=== PATIENT | female | born 1955 | race Two or more races ===

== ENCOUNTER 2020-08-05 21:10 | Inpatient (IN) | payer MEDICAID, OTHER ==
[~2020-08-05] VITALS: Ht 172.7 cm; Wt 67.7 kg
[2020-08-05] MEDS ORDERED: MORPHINE SULFATE 4 MG/ML SYR/VIAL ONE (21:26)
[2020-08-05] MEDS ORDERED: ONDANSETRON HCL 4 MG/2 ML VIAL ONE (21:26)
[2020-08-06 00:04] LABS: Basophils # (auto) 0 10 ^3/uL (0-0.2); Basophils % (auto) 0.6 % (0.0-2.0); Eosinophils # (auto) 0 10 ^3/uL (0-0.8); Eosinophils % (auto) 0.3 % (0.0-7.0); Hematocrit 38.8 % (36.0-46.0); Lymphocytes # (auto) 1.3 10 ^3/uL (0.4-5.4); Lymphocytes % (auto) 15.9 % (10.0-50.0); Mean Corpuscular Hemoglobin 30.1 pg (28.0-32.0); Mean Corpuscular Hgb Conc. 33.5 g/dL (32.0-36.0); Mean Corpuscular Volume 89.8 fL (80.0-100.0); Monocytes # (auto) 0.5 10 ^3/uL (0-1.3); Monocytes % (auto) 5.6 % (0.0-12.0); Neutrophils # (auto) 6.5 10 ^3/uL (1.6-8.6); Neutrophils % (auto) 77.6 % (37.0-80.0); Platelet Count (auto) 241 10^3/uL (140-450); Red Blood Cells 4.32 10^6/uL (4.0-5.20); Red Cell Distribution Width 12.8 % (11.8-14.3); White Blood Cell 8.4 10^3/uL (4.4-10.8)
[2020-08-06 00:19] LABS: INR 1.03 (0.9-1.15); Partial Thromboplastin Time 26.9 sec (23.0-31.2)
[2020-08-06 00:21] LABS: Albumin 3.3 g/dL (3.4-5.0); Calcium 8.3 mg/dL (8.5-10.1)
[2020-08-06 00:23] LABS: BUN/Creatinine Ratio 25.8
[2020-08-06 00:29] LABS: Bilirubin, Total 0.7 mg/dL (0.2-1.0); Total Protein 6.7 g/dL (6.4-8.2)
[2020-08-06] MEDS ORDERED: HEPARIN DRIP/D5W 100UNITS/ML 250 ML IV SCH ×2 (01:30→18:00)
[2020-08-06] MEDS ORDERED: HEPARIN SODIUM (PORCINE) 5000 UNITS/ML 1ML VIAL IV ONE (01:30)
[2020-08-06] MEDS ORDERED: ATORVASTATIN 20 MG TAB PO ONE (01:30)
[2020-08-06] MEDS ORDERED: METOPROLOL TARTRATE 25 MG TAB PO ONE (01:30)
[2020-08-06] MEDS ORDERED: SODIUM CHLORIDE 0.9% 1,000 ML IV ONE (01:45)
[2020-08-06] MEDS ORDERED: MORPHINE SULFATE 4 MG/ML SYR/VIAL IV ONE (02:45)
[2020-08-06] MEDS ORDERED: ONDANSETRON HCL 4 MG/2 ML VIAL IV ONE (02:45)
[2020-08-06 05:00] VITALS: BP 121/69
[2020-08-06 05:20] VITALS: BP 121/66
[2020-08-06] MEDS ORDERED: ATOR20TA50 PO (05:20)
[2020-08-06] MEDS ORDERED: LISI40TA11 PO (05:20)
[2020-08-06] MEDS ORDERED: INSU1INJ21 SC (05:20)
[2020-08-06] MEDS ORDERED: ASPI-543 PO (05:20)
[2020-08-06] MEDS ORDERED: INSU1INJ19 SC (05:21)
[2020-08-06] MEDS ORDERED: PNEUMOCOCCAL VACC POLYS 25 MCG/0.5 ML VIAL IM ONE (05:30)
[2020-08-06] MEDS: METOPROLOL TARTRATE 25 MG TAB PO SCH ×2 (08:59→21:41)
[2020-08-06 09:00] VITALS: BP 108/63
[2020-08-06] MEDS: MORPHINE SULF INJ 2 MG/ML SYRINGE 1ML IV PRN (09:00)
[2020-08-06 09:04] LABS: INR 1.04 (0.9-1.15); Partial Thromboplastin Time 51.5 sec (23.0-31.2)
[2020-08-06] MEDS ORDERED: ATORVASTATIN 20 MG TAB PO SCH (10:00)
[2020-08-06 13:00] VITALS: BP 118/67
[2020-08-06] MEDS ORDERED: fentaNYL CITRATE 100 MCG/2 ML VL ONE (13:45)
[2020-08-06] MEDS ORDERED: HEPARIN SODIUM (PORCINE) 5000 UNITS/ML 1ML VIAL ONE (13:45)
[2020-08-06] MEDS ORDERED: VERAPAMIL 2.5MG/ML INJ 2ML VIAL IV ONE (13:45)
[2020-08-06] MEDS ORDERED: ANGIOMAX 250 MG VIAL IV ONE (13:45)
[2020-08-06] MEDS ORDERED: IODIXANOL 320MG/ML 100ML BTL IV ONE (13:46)
[2020-08-06] MEDS ORDERED: SODIUM CHL 0.9% 0 ML ONE (13:46)
[2020-08-06] MEDS ORDERED: MIDAZOLAM HCL 1MG/1ML-2 ML VIAL ONE (13:46)
[2020-08-06] MEDS ORDERED: LIDOCAINE 2%HCL (LOCAL ANESTH.) INJ 20ML MDV ONE (13:46)
[2020-08-06] MEDS ORDERED: OPTISON 3ml Vial for INJ IV ONE (14:57)
[2020-08-06 15:33] LABS: INR 1.1 (0.9-1.15); Partial Thromboplastin Time 68.9 sec (23.0-31.2)
[2020-08-06 16:20] VITALS: BP 110/65
[2020-08-06 22:00] VITALS: BP 124/62
[2020-08-07] VITALS (16 sets, daily range): BP systolic 137–178; BP diastolic 78–106
[2020-08-07 00:57] LABS: INR 1.03 (0.9-1.15); Partial Thromboplastin Time 42.4 sec (23.0-31.2)
[2020-08-07] MEDS: NITROGLYCERIN 0.4 MG SL TAB SL PRN ×4 (03:25→14:13)
[2020-08-07] MEDS: MORPHINE SULF INJ 2 MG/ML SYRINGE 1ML IV PRN ×2 (03:25→10:24)
[2020-08-07] MEDS ORDERED: ANGIOMAX 250 MG VIAL IV ONE (04:13)
[2020-08-07] MEDS ORDERED: MIDAZOLAM HCL 1MG/1ML-2 ML VIAL ONE (04:13)
[2020-08-07] MEDS ORDERED: SODIUM CHL 0.9% 50 ML ONE (04:13)
[2020-08-07] MEDS ORDERED: fentaNYL CITRATE 100 MCG/2 ML VL ONE (04:13)
[2020-08-07] MEDS ORDERED: LIDOCAINE 2%HCL (LOCAL ANESTH.) INJ 20ML MDV ONE (04:22)
[2020-08-07] MEDS ORDERED: IODIXANOL 320MG/ML 100ML BTL IV ONE ×2 (04:22→04:50)
[2020-08-07] MEDS ORDERED: SODIUM CHLORIDE 0.9% 2,200 ML IV ONE (04:30)
[2020-08-07] MEDS ORDERED: SODIUM CHLORIDE 0.9% 1,000 ML IV ONE (04:30)
[2020-08-07] MEDS ORDERED: diphenhdrAMINE HCL 50 MG/1 ML VL ONE (04:39)
[2020-08-07] MEDS ORDERED: FAMOTIDINE (10MG/ML) 2ML VL IV ONE (04:39)
[2020-08-07] MEDS ORDERED: methylPREDNISolone SOD SUCC 125 MG/2 ML VL ONE (04:39)
[2020-08-07] MEDS ORDERED: TICAGRELOR 90 MG TAB ONE (05:03)
[2020-08-07] MEDS ORDERED: ASPirin 325 MG TAB ONE (05:03)
[2020-08-07 07:42] LABS: Basophils # (auto) 0.1 10 ^3/uL (0-0.2); Basophils % (auto) 0.9 % (0.0-2.0); Eosinophils # (auto) 0 10 ^3/uL (0-0.8); Eosinophils % (auto) 0.3 % (0.0-7.0); Hematocrit 41.5 % (36.0-46.0); Lymphocytes # (auto) 1.3 10 ^3/uL (0.4-5.4); Lymphocytes % (auto) 18.5 % (10.0-50.0); Mean Corpuscular Hemoglobin 29.9 pg (28.0-32.0); Mean Corpuscular Hgb Conc. 33.7 g/dL (32.0-36.0); Mean Corpuscular Volume 88.8 fL (80.0-100.0); Monocytes # (auto) 0.4 10 ^3/uL (0-1.3); Monocytes % (auto) 5.5 % (0.0-12.0); Neutrophils # (auto) 5.1 10 ^3/uL (1.6-8.6); Neutrophils % (auto) 74.8 % (37.0-80.0); Nucleated Red Blood Cells % 0.1 %; Platelet Count (auto) 253 10^3/uL (140-450); Red Blood Cells 4.67 10^6/uL (4.0-5.20); Red Cell Distribution Width 12.8 % (11.8-14.3); White Blood Cell 6.8 10^3/uL (4.4-10.8)
[2020-08-07 07:57] LABS: INR 1.08 (0.9-1.15); Partial Thromboplastin Time 36.8 sec (23.0-31.2)
[2020-08-07] MEDS: METOPROLOL TARTRATE 25 MG TAB PO SCH ×2 (10:23→21:57)
[2020-08-07] MEDS ORDERED: CLOPIDOGREL 300 MG TAB PO ONE (15:00)
[2020-08-07] MEDS ORDERED: DEXTROSE (50%) 50ML SYRG IV PRN (16:45)
[2020-08-07] MEDS ORDERED: ASPirin 81 mg TAB ONE (16:51)
[2020-08-07] MEDS: InsuLIN REG 1unit/0.01ml Soln (100units/ml) SC SCH ×2 (16:59→22:45)
[2020-08-07] MEDS: ACCU-CHEK COMFORT CURVE STRIP VI SCH ×2 (16:59→21:58)
[2020-08-07 17:25] LABS: Anion Gap 10 (5-15); Blood Urea Nitrogen 13 mg/dL (7-18); Calcium 9.3 mg/dL (8.5-10.1); Carbon Dioxide 22 mmol/L (21-32); Chloride 100 mmol/L (98-107); GFR African American 132 mL/min; GFR Non-African American 109 mL/min; Glucose 285 mg/dL (74-106); Potassium 4.2 mmol/L (3.5-5.1); Sodium 132 mmol/L (136-145)
[2020-08-07] MEDS: ATORVASTATIN 20 MG TAB PO SCH (21:58)
[2020-08-08] VITALS (13 sets, daily range): BP systolic 116–139; BP diastolic 64–82
[2020-08-08] MEDS: ACCU-CHEK COMFORT CURVE STRIP VI SCH ×4 (06:35→21:53)
[2020-08-08] MEDS: InsuLIN REG 1unit/0.01ml Soln (100units/ml) SC SCH ×4 (06:36→21:55)
[2020-08-08 07:08] LABS: Basophils # (auto) 0 10 ^3/uL (0-0.2); Basophils % (auto) 0.4 % (0.0-2.0); Eosinophils # (auto) 0.1 10 ^3/uL (0-0.8); Eosinophils % (auto) 0.7 % (0.0-7.0); Hematocrit 43.6 % (36.0-46.0); Hemoglobin 14.9 g/dL (12.2-16.2); Lymphocytes # (auto) 1.7 10 ^3/uL (0.4-5.4); Mean Corpuscular Hemoglobin 30.1 pg (28.0-32.0); Mean Corpuscular Hgb Conc. 34.3 g/dL (32.0-36.0); Mean Corpuscular Volume 87.7 fL (80.0-100.0); Monocytes # (auto) 1.3 10 ^3/uL (0-1.3); Monocytes % (auto) 11.9 % (0.0-12.0); Nucleated Red Blood Cells % 0.1 %; Platelet Count (auto) 275 10^3/uL (140-450); Red Blood Cells 4.97 10^6/uL (4.0-5.20); Red Cell Distribution Width 12.5 % (11.8-14.3); White Blood Cell 11.1 10^3/uL (4.4-10.8)
[2020-08-08 07:23] LABS: BUN/Creatinine Ratio 17.5; Calcium 8.9 mg/dL (8.5-10.1); Magnesium 2.3 mg/dL (1.6-2.6); Potassium 3.8 mmol/L (3.5-5.1)
[2020-08-08] MEDS: CLOPIDOGREL BISULFATE 75 MG TAB PO SCH (10:38)
[2020-08-08] MEDS: METOPROLOL TARTRATE 25 MG TAB PO SCH ×2 (10:38→22:03)
[2020-08-08] MEDS: ASPirin 81 mg TAB PO SCH (10:38)
[2020-08-08] MEDS: LISINOPRIL 10 MG TAB PO SCH (17:45)
[2020-08-08] MEDS: ATORVASTATIN 20 MG TAB PO SCH (22:02)
[2020-08-09] VITALS (35 sets, daily range): BP systolic 69–142; BP diastolic 42–91
[2020-08-09 03:38] LABS: Basophils # (auto) 0.1 10 ^3/uL (0-0.2); Basophils % (auto) 0.5 % (0.0-2.0); Eosinophils # (auto) 0.1 10 ^3/uL (0-0.8); Eosinophils % (auto) 0.9 % (0.0-7.0); Hemoglobin 14.2 g/dL (12.2-16.2); Lymphocytes # (auto) 2.2 10 ^3/uL (0.4-5.4); Lymphocytes % (auto) 19.6 % (10.0-50.0); Mean Corpuscular Hgb Conc. 33.7 g/dL (32.0-36.0); Monocytes # (auto) 1.5 10 ^3/uL (0-1.3); Monocytes % (auto) 13.5 % (0.0-12.0); Neutrophils # (auto) 7.4 10 ^3/uL (1.6-8.6); Neutrophils % (auto) 65.5 % (37.0-80.0); Nucleated Red Blood Cells % 0.1 %; Platelet Count (auto) 259 10^3/uL (140-450); Red Blood Cells 4.72 10^6/uL (4.0-5.20); Red Cell Distribution Width 12.8 % (11.8-14.3); White Blood Cell 11.4 10^3/uL (4.4-10.8)
[2020-08-09 04:10] LABS: Calcium 8.9 mg/dL (8.5-10.1); Potassium 3.8 mmol/L (3.5-5.1)
[2020-08-09] MEDS: ACCU-CHEK COMFORT CURVE STRIP VI SCH ×4 (06:06→22:19)
[2020-08-09] MEDS: InsuLIN REG 1unit/0.01ml Soln (100units/ml) SC SCH ×3 (06:08→17:00)
[2020-08-09] MEDS: CLOPIDOGREL BISULFATE 75 MG TAB PO SCH (10:54)
[2020-08-09] MEDS: ASPirin 81 mg TAB PO SCH (10:54)
[2020-08-09] MEDS: METOPROLOL TARTRATE 25 MG TAB PO SCH ×2 (10:55→22:43)
[2020-08-09] MEDS: LISINOPRIL 10 MG TAB PO SCH (10:55)
[2020-08-09] MEDS ORDERED: SODIUM CHLORIDE 0.9% 250 ML IV ONE (15:30)
[2020-08-09] MEDS ORDERED: INSULIN LANTUS (GLARGINE) 1 /0.01ml (100units/ml) SC SCH (22:00)
[2020-08-09] MEDS ORDERED: InsuLIN REG 1unit/0.01ml Soln (100units/ml) SC SCH (22:00)
[2020-08-09] MEDS: ATORVASTATIN 20 MG TAB PO SCH (22:43)
[2020-08-10] VITALS (11 sets, daily range): BP systolic 94–114; BP diastolic 51–64
[2020-08-10 04:25] LABS: Basophils # (auto) 0.1 10 ^3/uL (0-0.2); Basophils % (auto) 0.6 % (0.0-2.0); Eosinophils # (auto) 0.2 10 ^3/uL (0-0.8); Eosinophils % (auto) 1.7 % (0.0-7.0); Hematocrit 38.5 % (36.0-46.0); Hemoglobin 13.1 g/dL (12.2-16.2); Lymphocytes # (auto) 2.2 10 ^3/uL (0.4-5.4); Lymphocytes % (auto) 22.6 % (10.0-50.0); Mean Corpuscular Hemoglobin 30.3 pg (28.0-32.0); Mean Corpuscular Hgb Conc. 34.1 g/dL (32.0-36.0); Mean Corpuscular Volume 88.7 fL (80.0-100.0); Monocytes # (auto) 1.2 10 ^3/uL (0-1.3); Monocytes % (auto) 11.9 % (0.0-12.0); Neutrophils # (auto) 6.2 10 ^3/uL (1.6-8.6); Neutrophils % (auto) 63.2 % (37.0-80.0); Nucleated Red Blood Cells % 0.1 %; Platelet Count (auto) 251 10^3/uL (140-450); Red Blood Cells 4.33 10^6/uL (4.0-5.20); Red Cell Distribution Width 12.6 % (11.8-14.3); White Blood Cell 9.8 10^3/uL (4.4-10.8)
[2020-08-10] MEDS: ACCU-CHEK COMFORT CURVE STRIP VI SCH (06:26)
[2020-08-10] MEDS: InsuLIN REG 1unit/0.01ml Soln (100units/ml) SC SCH (06:29)
[2020-08-10] MEDS: CLOPIDOGREL BISULFATE 75 MG TAB PO SCH (09:24)
[2020-08-10] MEDS: ASPirin 81 mg TAB PO SCH (09:24)
[2020-08-10] MEDS: METOPROLOL TARTRATE 25 MG TAB PO SCH (09:25)
== END 2020-08-10 12:41 | disposition home or self-care (01) | DRG 174 ==
LOC: ER 21:10 → EDBD 21:10 → TELE 21:11 → TELE-WESTW 08-06 03:43 → ICU WEST 08-07 04:00
PROVIDERS: ADMIT Hospitalist; ATTEND Hospitalist
PROC: 4A023N7 Measurement of Cardiac Sampling and Pressure, Left Heart, Percutaneous Approach (ICD-10-PCS; 2020-08-06)
PROC: B211YZZ Fluoroscopy of Multiple Coronary Arteries using Other Contrast (ICD-10-PCS; 2020-08-06)
PROC: B215YZZ Fluoroscopy of Left Heart using Other Contrast (ICD-10-PCS; 2020-08-06)
PROC: B41JYZZ Fluoroscopy of Other Lower Arteries using Other Contrast (ICD-10-PCS; 2020-08-06)
PROC: 02703DZ Dilation of Coronary Artery, One Artery with Intraluminal Device, Percutaneous Approach (ICD-10-PCS; principal; 2020-08-07)
PROC: B41G1ZZ Fluoroscopy of Left Lower Extremity Arteries using Low Osmolar Contrast (ICD-10-PCS; 2020-08-07)
DX: I21.02 ST elevation (STEMI) myocardial infarction involving left anterior descending coronary artery (principal); E11.65 Type 2 diabetes mellitus with hyperglycemia; I10 Essential (primary) hypertension; E78.5 Hyperlipidemia, unspecified; E66.9 Obesity, unspecified; I25.10 Atherosclerotic heart disease of native coronary artery without angina pectoris; Z79.4 Long term (current) use of insulin; Z79.82 Long term (current) use of aspirin; Z79.899 Other long term (current) drug therapy; Z91.013 Allergy to seafood; Z68.22 Body mass index [BMI] 22.0-22.9, adult; I95.9 Hypotension, unspecified
CPT/HCPCS: 36415; 71045; 71250; 75710; 80048; 80053; 82962; 83036; 83735; 83880; 84484; 85025; 85379; 85610; 85730; 87081; 92928; 93005; 93306; 93458; 93886; 94010; 99152; 99153; G0378; J1815; J2250; J2405; J3490; Q9956; Q9967

== ENCOUNTER 2020-11-03 08:23 | Emergency (ER) | payer MEDICAID ==
[~2020-11-03] VITALS: Ht 160 cm; Wt 68.5 kg
[~2020-11-03 08:23] MED LIST: ASPI-543 PO; INSU1INJ19 SC; INSU1INJ21 SC
[2020-11-03 08:59] LABS: Basophils # (auto) 0.1 10 ^3/uL (0-0.2); Basophils % (auto) 0.3 % (0.0-2.0); Eosinophils # (auto) 0 10 ^3/uL (0-0.8); Eosinophils % (auto) 0.1 % (0.0-7.0); Hematocrit 41.9 % (36.0-46.0); Hemoglobin 14.1 g/dL (12.2-16.2); Lymphocytes # (auto) 0.9 10 ^3/uL (0.4-5.4); Lymphocytes % (auto) 5.3 % (10.0-50.0); Mean Corpuscular Hemoglobin 28.9 pg (28.0-32.0); Mean Corpuscular Hgb Conc. 33.6 g/dL (32.0-36.0); Mean Corpuscular Volume 86.2 fL (80.0-100.0); Monocytes # (auto) 1.1 10 ^3/uL (0-1.3); Monocytes % (auto) 6.6 % (0.0-12.0); Neutrophils # (auto) 14.8 10 ^3/uL (1.6-8.6); Neutrophils % (auto) 87.7 % (37.0-80.0); Red Blood Cells 4.86 10^6/uL (4.0-5.20); White Blood Cell 16.9 10^3/uL (4.4-10.8)
[2020-11-03 09:22] LABS: Albumin 3.9 g/dL (3.4-5.0); Anion Gap 8 (5-15); Blood Urea Nitrogen 10 mg/dL (7-18); Carbon Dioxide 22 mmol/L (21-32); Chloride 103 mmol/L (98-107); Glucose 235 mg/dL (74-106); Magnesium 1.8 mg/dL (1.6-2.6); Potassium 3.7 mmol/L (3.5-5.1); Sodium 133 mmol/L (136-145)
[2020-11-03 09:29] LABS: Alanine Aminotransferase 47 U/L (13-56); Alkaline Phosphatase 99 U/L (45-117); Aspartate Aminotransferase 20 U/L (15-37); Bilirubin, Total 1.5 mg/dL (0.2-1.0); GFR African American 160 mL/min; GFR Non-African American 132 mL/min; Total Protein 7.7 g/dL (6.4-8.2)
[2020-11-03 17:30] VITALS: BP 110/64
== END 2020-11-03 18:25 | disposition home or self-care (01) ==
LOC: EDBD 08:23 → ER 08:23 → EDSEX 08:23 → ER 18:25
DX: R00.2 Palpitations (principal); E11.9 Type 2 diabetes mellitus without complications; I10 Essential (primary) hypertension; Z91.013 Allergy to seafood
CPT/HCPCS: 36415; 71045; 80053; 83735; 84443; 84484; 85025; 93005

== ENCOUNTER → 2023-04-06 | Outpatient (CLI) | payer OTHER, MEDICAID ==
[2023-04-06 11:05] LABS: Basophils # (auto) 0 10 ^3/uL (0-0.2); Basophils % (auto) 0.7 % (0.0-2.0); Eosinophils # (auto) 0.1 10 ^3/uL (0-0.8); Eosinophils % (auto) 1.9 % (0.0-7.0); Hematocrit 42.2 % (36.0-46.0); Hemoglobin 14.3 g/dL (12.2-16.2); Lymphocytes # (auto) 1.8 10 ^3/uL (0.4-5.4); Mean Corpuscular Hemoglobin 30.4 pg (28.0-32.0); Mean Corpuscular Volume 89.4 fL (80.0-100.0); Monocytes # (auto) 0.6 10 ^3/uL (0-1.3); Monocytes % (auto) 9.2 % (0.0-12.0); Neutrophils # (auto) 4.1 10 ^3/uL (1.6-8.6); Neutrophils % (auto) 61.2 % (37.0-80.0); Nucleated Red Blood Cells % 0.1 %; Red Blood Cells 4.72 10^6/uL (4.0-5.20); Red Cell Distribution Width 12.9 % (11.8-14.3); White Blood Cell 6.6 10^3/uL (4.4-10.8)
[2023-04-06 11:21] LABS: Albumin 3.8 g/dL (3.4-5.0); Potassium 4.2 mmol/L (3.5-5.1)
[2023-04-06 11:30] LABS: BUN/Creatinine Ratio 27.9 (10.0-20.0); Bilirubin, Total 1.3 mg/dL (0.2-1.0); Calcium 9.2 mg/dL (8.5-10.1); Total Protein 7.6 g/dL (6.4-8.2)
[2023-04-06 12:40] LABS: Micro Albumin 8.71 mg/L (0-30.0)
== END | disposition home or self-care (01) ==
LOC: LAB 10:27
PROVIDERS: ATTEND Nurse Practitioner Family
DX: Z00.01 Encounter for general adult medical examination with abnormal findings (principal); I10 Essential (primary) hypertension; E11.9 Type 2 diabetes mellitus without complications
CPT/HCPCS: 36415; 80053; 80061; 82043; 82570; 84439; 84443; 85025

== ENCOUNTER → 2023-04-29 | Outpatient (CLI) | payer OTHER, MEDICAID | END | disposition home or self-care (01) | LOC: LAB 12:32 | PROVIDERS: ATTEND Nurse Practitioner Family | DX: Z00.01 Encounter for general adult medical examination with abnormal findings (principal); I10 Essential (primary) hypertension; E11.9 Type 2 diabetes mellitus without complications | CPT/HCPCS: 82274 ==

== ENCOUNTER → 2023-06-22 | Outpatient (CLI) | payer OTHER, MEDICAID | END | disposition home or self-care (01) | LOC: XYW 09:32 | PROVIDERS: ATTEND Student in an Organized Health Care Education/Training Program | DX: I08.1 Rheumatic disorders of both mitral and tricuspid valves (principal); I50.32 Chronic diastolic (congestive) heart failure | CPT/HCPCS: 93306 ==

== ENCOUNTER 2024-03-08 12:46 | Inpatient (IN) | payer OTHER, MEDICAID ==
[~2024-03-08] VITALS: Ht 160 cm; Wt 69.3 kg
[2024-03-08 15:36] LABS: Basophils # (auto) 0.1 10 ^3/uL (0-0.2); Basophils % (auto) 0.9 % (0.0-2.0); Eosinophils # (auto) 0.1 10 ^3/uL (0-0.8); Eosinophils % (auto) 1.1 % (0.0-7.0); Hematocrit 44.3 % (36.0-46.0); Hemoglobin 14.5 g/dL (12.2-16.2); Lymphocytes # (auto) 1.7 10 ^3/uL (0.4-5.4); Lymphocytes % (auto) 21.9 % (10.0-50.0); Mean Corpuscular Hemoglobin 29.8 pg (28.0-32.0); Mean Corpuscular Hgb Conc. 32.9 g/dL (32.0-36.0); Mean Corpuscular Volume 90.6 fL (80.0-100.0); Monocytes # (auto) 0.5 10 ^3/uL (0-1.3); Monocytes % (auto) 7.2 % (0.0-12.0); Neutrophils # (auto) 5.3 10 ^3/uL (1.6-8.6); Neutrophils % (auto) 68.9 % (37.0-80.0); Nucleated Red Blood Cells % 0.1 %; Red Blood Cells 4.88 10^6/uL (4.0-5.20); Red Cell Distribution Width 13.6 % (11.8-14.3); White Blood Cell 7.6 10^3/uL (4.4-10.8)
[2024-03-08 15:47] LABS: Chloride 103 mmol/L (98-107); Potassium 4.3 mmol/L (3.5-5.1); Sodium 137 mmol/L (136-145)
[2024-03-08 15:48] LABS: Anion Gap 6 (5-15); Calcium 9.7 mg/dL (8.7-10.4); Carbon Dioxide 28 mmol/L (20-30)
[2024-03-08 15:53] LABS: BUN/Creatinine Ratio 23.7 (10.0-20.0); Blood Urea Nitrogen 14 mg/dL (9-23); Glucose 197 mg/dL (74-106)
[2024-03-08 15:54] LABS: Magnesium 2.1 mg/dL (1.6-2.6)
[2024-03-08] MEDS: ASPirin 81 mg TAB PO ONE (16:33)
[2024-03-08] MEDS ORDERED: NITROGLYCERIN 0.4 MG SL TAB SL PRN (18:45)
[2024-03-08] MEDS ORDERED: ACETAMINOPHEN 325 MG TAB PO PRN (18:45)
[2024-03-08] MEDS ORDERED: MORPHINE SULFATE 4 MG/ML SYR/VIAL IV PRN (18:45)
[2024-03-08] MEDS ORDERED: ONDANSETRON HCL 4 MG/2 ML VIAL IV PRN (18:45)
[2024-03-08 19:30] LABS: Magnesium 2.1 mg/dL (1.6-2.6)
[2024-03-08 19:49] LABS: INR 1.04 (0.9-1.15)
[2024-03-08] MEDS: METOPROLOL TARTRATE 25 MG TAB PO SCH (23:30)
[2024-03-08] MEDS: ATORVASTATIN 20 MG TAB PO SCH (23:30)
[2024-03-08] MEDS: PANTOPRAZOLE 40 MG/10 ML VIAL INJ IV ONE (23:44)
[2024-03-09] VITALS (7 sets, daily range): BP systolic 99–124; BP diastolic 56–76; PULSE 72–85; RESP 16–20; TEMP 97.5–99; O2SAT 93–98
[2024-03-09 04:42] LABS: Basophils # (auto) 0 10 ^3/uL (0-0.2); Basophils % (auto) 0.6 % (0.0-2.0); Eosinophils # (auto) 0.2 10 ^3/uL (0-0.8); Eosinophils % (auto) 2.6 % (0.0-7.0); Hematocrit 41.7 % (36.0-46.0); Hemoglobin 13.7 g/dL (12.2-16.2); Lymphocytes # (auto) 2.2 10 ^3/uL (0.4-5.4); Lymphocytes % (auto) 32.2 % (10.0-50.0); Mean Corpuscular Hemoglobin 29.7 pg (28.0-32.0); Mean Corpuscular Hgb Conc. 32.7 g/dL (32.0-36.0); Mean Corpuscular Volume 90.7 fL (80.0-100.0); Monocytes # (auto) 0.6 10 ^3/uL (0-1.3); Monocytes % (auto) 8.4 % (0.0-12.0); Neutrophils # (auto) 3.9 10 ^3/uL (1.6-8.6); Neutrophils % (auto) 56.2 % (37.0-80.0); Red Cell Distribution Width 13.4 % (11.8-14.3)
[2024-03-09 05:01] LABS: Alanine Aminotransferase 34 U/L (7-40); Albumin 4.1 g/dL (3.2-4.8); Alkaline Phosphatase 63 U/L (46-116); Anion Gap 6 (5-15); Aspartate Aminotransferase 21 U/L (13-40); BUN/Creatinine Ratio 27.8 (10.0-20.0); Blood Urea Nitrogen 15 mg/dL (9-23); Calcium 9.3 mg/dL (8.5-10.1); Carbon Dioxide 26 mmol/L (20-30); Chloride 107 mmol/L (98-107); Cholesterol 86 mg/dL (< 200); Glucose 105 mg/dL (74-106); LDL Cholesterol 41 mg/dL (< 100); Potassium 3.6 mmol/L (3.5-5.1); Sodium 139 mmol/L (136-145); Triglycerides 78 mg/dL (< 150)
[2024-03-09 05:02] LABS: Bilirubin, Total 1.5 mg/dL (0.2-1.0); HDL Cholesterol 31 mg/dL (40-59); Total Protein 6.6 g/dL (5.7-8.2)
[2024-03-09] MEDS ORDERED: ASPirin 81 mg TAB PO SCH (10:00)
[2024-03-09] MEDS: DOCUSATE SOD 100 MG CAP PO SCH (10:54)
[2024-03-09] MEDS: ASPirin-EC 81 mg tab PO SCH (10:54)
[2024-03-09] MEDS: PANTOPRAZOLE 40 MG/10 ML VIAL INJ IV SCH (10:54)
[2024-03-09] MEDS: LISINOPRIL 5 MG TAB PO SCH (10:57)
[2024-03-09] MEDS ORDERED: DEXTROSE (50%) 50ML SYRG IV PRN (17:00)
[2024-03-09] MEDS: InsuLIN REG 1unit/0.01ml Soln (100units/ml) SC SCH (17:36)
[2024-03-09] MEDS: ACCU-CHEK COMFORT CURVE STRIP VI SCH (17:36)
[2024-03-10] VITALS (7 sets, daily range): BP systolic 100–136; BP diastolic 52–73; PULSE 64–91; RESP 16–22; TEMP 97.6–98.7; O2SAT 91–100
[2024-03-10] MEDS ORDERED: LISI-275 PO (13:51)
[2024-03-10] MEDS ORDERED: ATOR20TA50 PO (13:51)
[2024-03-10] MEDS ORDERED: MET25T PO (13:51)
[2024-03-10 20:30] LABS: Urine Bacteria None Seen /hpf (None Seen)
[2024-03-10 21:02] LABS: Urine Blood Negative /uL (Negative); Urine Clarity Clear (Clear); Urine Color Light-Yellow (Yellow); Urine Protein, UAD Negative (Negative); Urine Urobilinogen Normal (Negative); Urine WBC 1 /hpf (0 - 5)
== END 2024-03-10 20:20 | disposition home or self-care (01) | DRG 311 ==
LOC: ER 12:46 → TELE 18:43 → UNDOADMIN 18:43 → TELE 18:51 → TELE-WESTW 03-09 15:21
PROVIDERS: ADMIT Nurse Practitioner Family; ATTEND Internal Medicine
DX: I24.9 Acute ischemic heart disease, unspecified (principal); F41.9 Anxiety disorder, unspecified; E78.5 Hyperlipidemia, unspecified; I10 Essential (primary) hypertension; I25.10 Atherosclerotic heart disease of native coronary artery without angina pectoris; E11.9 Type 2 diabetes mellitus without complications; I45.10 Unspecified right bundle-branch block; I25.2 Old myocardial infarction; Z79.4 Long term (current) use of insulin; Z82.49 Family history of ischemic heart disease and other diseases of the circulatory system; Z83.3 Family history of diabetes mellitus; Z91.013 Allergy to seafood; Z95.5 Presence of coronary angioplasty implant and graft; Z79.899 Other long term (current) drug therapy; Z79.82 Long term (current) use of aspirin
CPT/HCPCS: 36415; 71046; 80048; 80053; 80061; 81001; 82962; 83036; 83690; 83735; 84100; 84443; 84484; 85025; 85610; 87081; 93005; 93306; C9113; G0378; J1815

== ENCOUNTER → 2024-04-18 | Outpatient (CLI) | payer OTHER, MEDICAID ==
[~2024-04-18] MED LIST changes: +ATOR20TA50 PO; +LISI-275 PO; +MET25T PO
== END | disposition home or self-care (01) ==
LOC: LAB 14:14
PROVIDERS: ATTEND Internal Medicine
DX: Z12.11 Encounter for screening for malignant neoplasm of colon (principal)
CPT/HCPCS: 82270

== ENCOUNTER → 2024-06-07 | Outpatient (CLI) | payer OTHER, MEDICAID ==
[2024-06-07 08:13] LABS: Basophils # (auto) 0 10 ^3/uL (0-0.2); Basophils % (auto) 0.5 % (0.0-2.0); Eosinophils # (auto) 0.1 10 ^3/uL (0-0.8); Eosinophils % (auto) 1.7 % (0.0-7.0); Hematocrit 45.5 % (36.0-46.0); Hemoglobin 15.2 g/dL (12.2-16.2); Mean Corpuscular Hgb Conc. 33.5 g/dL (32.0-36.0); Mean Corpuscular Volume 89.7 fL (80.0-100.0); Monocytes # (auto) 0.7 10 ^3/uL (0-1.3); Monocytes % (auto) 10.2 % (0.0-12.0); Neutrophils # (auto) 4.3 10 ^3/uL (1.6-8.6); Neutrophils % (auto) 59.6 % (37.0-80.0); Nucleated Red Blood Cells % 0.1 %; Red Blood Cells 5.07 10^6/uL (4.0-5.20); Red Cell Distribution Width 12.8 % (11.8-14.3); White Blood Cell 7.2 10^3/uL (4.4-10.8)
[2024-06-07 08:37] LABS: Creatinine, Urine 57.25 mg/dL (30.0-125.0)
[2024-06-07 08:55] LABS: Alanine Aminotransferase 40 U/L (7-40); Albumin 4.5 g/dL (3.2-4.8); Alkaline Phosphatase 78 U/L (46-116); Anion Gap 5 (5-15); Aspartate Aminotransferase 21 U/L (13-40); BUN/Creatinine Ratio 19.4 (10.0-20.0); Blood Urea Nitrogen 12 mg/dL (9-23); Calcium 9.5 mg/dL (8.7-10.4); Carbon Dioxide 29 mmol/L (20-30); Chloride 105 mmol/L (98-107); Glucose 154 mg/dL (74-106); LDL Cholesterol 52 mg/dL (< 100); Potassium 4.3 mmol/L (3.5-5.1); Sodium 139 mmol/L (136-145); Triglycerides 84 mg/dL (< 150)
[2024-06-07 08:56] LABS: Bilirubin, Total 1.3 mg/dL (0.2-1.0); Cholesterol 102 mg/dL (< 200); HDL Cholesterol 35 mg/dL (40-59); Total Protein 7.2 g/dL (5.7-8.2)
== END | disposition home or self-care (01) ==
LOC: LAB 07:51
PROVIDERS: ATTEND Nurse Practitioner Family
DX: I10 Essential (primary) hypertension (principal); E11.65 Type 2 diabetes mellitus with hyperglycemia; E78.5 Hyperlipidemia, unspecified
CPT/HCPCS: 36415; 80053; 80061; 82043; 82570; 83036; 84439; 84443; 85025

== ENCOUNTER 2024-09-30 10:36 | Inpatient (IN) | payer OTHER, MEDICAID ==
[~2024-09-30] VITALS: Ht 160 cm; Wt 63.5 kg
[2024-09-30 11:44] LABS: Basophils # (auto) 0 10 ^3/uL (0-0.2); Basophils % (auto) 0.4 % (0.0-2.0); Eosinophils # (auto) 0.1 10 ^3/uL (0-0.8); Eosinophils % (auto) 0.7 % (0.0-7.0); Hematocrit 45.7 % (36.0-46.0); Hemoglobin 15.6 g/dL (12.2-16.2); Lymphocytes # (auto) 1.3 10 ^3/uL (0.4-5.4); Lymphocytes % (auto) 15.6 % (10.0-50.0); Mean Corpuscular Hemoglobin 30.5 pg (28.0-32.0); Mean Corpuscular Hgb Conc. 34.1 g/dL (32.0-36.0); Mean Corpuscular Volume 89.4 fL (80.0-100.0); Monocytes # (auto) 0.5 10 ^3/uL (0-1.3); Monocytes % (auto) 6.5 % (0.0-12.0); Neutrophils # (auto) 6.4 10 ^3/uL (1.6-8.6); Neutrophils % (auto) 76.8 % (37.0-80.0); Platelet Count (auto) 210 10^3/uL (140-450); Red Blood Cells 5.11 10^6/uL (4.0-5.20); Red Cell Distribution Width 13.4 % (11.8-14.3); White Blood Cell 8.4 10^3/uL (4.4-10.8)
[2024-09-30 11:51] LABS: Alanine Aminotransferase 29 U/L (7-40); Albumin 4.6 g/dL (3.2-4.8); Alkaline Phosphatase 78 U/L (46-116); Anion Gap 9 (5-15); Aspartate Aminotransferase 17 U/L (13-40); BUN/Creatinine Ratio 23.4 (10.0-20.0); Blood Urea Nitrogen 18 mg/dL (9-23); Calcium 10.1 mg/dL (8.7-10.4); Carbon Dioxide 28 mmol/L (20-31); Chloride 102 mmol/L (98-107); Potassium 4.3 mmol/L (3.5-5.1); Sodium 139 mmol/L (136-145); Total Protein 7.6 g/dL (5.7-8.2)
[2024-09-30 11:54] LABS: Bilirubin, Total 1.7 mg/dL (0.2-1.0); Glucose 171 mg/dL (74-106)
--- NOTE | 2024-09-30 12:49 | DVH ---
CHEST RADIOGRAPH Indication: CP Technique: Single frontal view of the chest was obtained COMPARISON: CHEST PORTABLE on DOS: 11/03/20, CHEST PORTABLE on DOS: 08/05/20 FINDINGS: Lines and Tubes: None Lungs: Clear Pleura: No effusion. No pneumothorax. Cardiomediastinal contours: Unremarkable Bones: Unremarkable IMPRESSION: 1. No acute disease.
[2024-09-30] MEDS: ONDANSETRON HCL 4 MG/2 ML VIAL IV ONE (13:31)
--- NOTE | 2024-09-30 13:31 | ED.PDOC ---
History of Present Illness HPI Comments 69 y/o F, with a Hx of CABG, DM, HLD, HTN, IN, and PTCA, is BIBA for c/o sternal chest pain and left-arm weakness and numbness, today. Per EMS report, patient endorses on chest pain onset, yesterday, that worsened, this morning, with additional onset of arm weakness and numbness sensation. Patient commented to EMS on pain being a 7/10 and "tight" and "throbbing" in quality in addition to describing her arm weakness and numbness to "noodle arms" along with taking 4xASA and 2xNTG prior to EMS arrival. On scene, patient was found tachycardic at a rate of 102 and hypertensive at 176/194, with a a blood glucose of 192 and all remaining vitals within normal limits. En route, patient was given an additional 1xNTG, with pain improving to a 3/10 and systolic pressure improving to 134 and arm symptoms subsiding. Upon arrival to ED, patient endorses on symptoms feeling similar to when she had an IN in the past. She states on no recent stressors, strenuous activities, travel, sick contact, spoiled food intake, or substance use/exposure. She informs further on no longer being on blood thinners. Patient denies having any palpitations, shortness of breath, nausea, vomiting, fever, or chills, or other associated symptoms or modifiers at this time. Chief Complaint: Chest Pain Time Seen by MD: 10:36 Primary Care Provider: UNKNOWN Reviewed Notes: Nurses Notes, Yard Worker Notes, Medications, Allergies Allergies: Coded Allergies: Shellfish Allergy (Verified Allergy, Unknown, 08/06/20) Uncoded Allergies: eggplant (Allergy, Unknown, 08/06/20) Home Meds Active Scripts Metoprolol Tartrate (Lopressor) 25 Mg Tb, 12.5 MG PO Q12HR for 30 Days, #30 TAB 9 Refills Prov:CATHY GUILLERMO DO 03/10/24 Lisinopril (Lisinopril) 5 Mg Tab, 5 MG PO DAILY for 30 Days, #30 TAB 9 Refills Prov:CATHY GUILLERMO DO 03/10/24 Atorvastatin Calcium (ATORVASTATIN CALCIUM) 20 Mg Tab, 40 MG PO HS for 30 Days, #60 TAB 9 Refills Prov:CATHY GUILLERMO DO 03/10/24 Reported Medications Insulin Glargine (Basaglar Kwikpen) 100 Unit/Ml Inj, 100 UNIT SC, INJ 08/06/20 Insulin NPH Isophane & Reg (Hu (Novolin 70/30 Flexpen (70-30) 100 Unit/ml) 1 Inj Inj, 1 INJ SC, INJ 08/06/20 Aspirin (Aspir-Low) 81 Mg Tab, 81 MG PO DAILY for 30 Days, MG 08/06/20 Information Source: Patient, Emergency Med Personnel Mode of Arrival: EMS Severity: Moderate Timing: Days Duration: Since onset Prehospital treatment: 12 Lead EKG, ASA, Contracts Attorney, NTG Past Medical History PAST MEDICAL HISTORY: DM, High Lipids, HTN, IN Surgical History: CABG, PTCA H[employer] TUTOR History: No Pertinent HIGH [employer]CHO[employer]OR History Family History Family History: Reviewed,noncontributory to illness Social History Smoker: Non-Smoker Alcohol: Denies ETOH Use Drugs: Denies Drug Use Lives In: Home Cardiovascular: reports: chest pain Neurological: reports: numbness (left-arm ), weakness (left arm ) All Other Systems: Reviewed and Negative (negative otherwise stated in HPI) Physical Exam General Appearance: No Apparent Distress, Normal HEENT: Normal ENT Inspection, Pharynx Normal, TMs Normal Neck: Full Range of Motion, Non-Tender, Normal, Normal Inspection Respiratory: Chest Non-Tender, Lungs Clear, No Accessory Muscle Use, No Respiratory Distress, Normal Breath Sounds Cardiovascular: No Edema, No JVD, No Murmur, No Gallop, Normal Peripheral Pulses, Regular Rate/Rhythm Breast Exam: Deferred Gastrointestinal: No Organomegaly, Non Tender, No Pulsatile Mass, Normal Bowel Sounds, Soft Genitalia: Deferred Pelvic: Deferred Rectal: Deferred Extremities: No calf tenderness, Normal capillary refill, Normal inspection, Normal range of motion, Non-tender, No pedal edema Musculoskeletal : Apperance: Normal Neurologic: Alert, risk management specialist II-XII nml as Tested, No Motor Deficits, Normal Affect, Normal Mood, No Sensory Deficits Cerebellar Function: Normal Reflexes: Normal Skin: Dry, Normal Color, Warm, Other (well-healed, sternal chest midline surgery scar ) Lymphatic: No Adenopathy Was a procedure done? Was a procedure done?: No EKG EKG #1: Pulse Rate (adult): 84 [place]: Normal Cardiac Rhythm: NSR Block: RBBB Hypertrophy: None Comments ST depression before leads V5 and V6; QTC 523 EKG #2: Pulse Rate (adult): 83 [place]: Normal Cardiac Rhythm: NSR Block: RBBB Hypertrophy: None ST: Normal Comments EKG read at 1141 AM, QTC's 528 EKG #3: Pulse Rate (adult): 74 [place]: Normal Cardiac Rhythm: NSR Block: RBBB Hypertrophy: None ST: Normal Comments read at 1336; no changes from previous EKG's Differential Dx Considerations may include: IN, ACS, PE, PNA, costochondritis, pericarditis, angina, anxiety, gastritis, gastroenteritis, viral syndrome X-Ray, Labs, Meds, VS Vital Signs Date Time Temp Pulse Resp B/P (MAP) Pulse Ox O2 Delivery O2 Flow Rate FiO2 09/30/24 14:32 78 17 104/66 09/30/24 13:40 74 09/30/24 13:39 97 16 114/55 09/30/24 13:36 74 09/30/24 13:31 83 09/30/24 11:41 85 09/30/24 11:09 98.7 95 18 137/87 (104) 99 09/30/24 10:37 84 Lab Test 09/30/24 14:43 09/30/24 12:01 09/30/24 11:13 Range/Units Troponin I High Sensitivity 8 6 5 </=34 ng/L Triglycerides Level Pending Cholesterol Level Pending LDL Cholesterol Pending HDL Cholesterol Pending Thyroid Stimulating Hormone (TSH) 1.15 0.55-4.78 uIU/mL White Blood Count 8.4 4.4-10.8 10^3/uL Red Blood Count 5.11 4.0-5.20 10^6/uL Hemoglobin 15.6 12.2-16.2 g/dL Hematocrit 45.7 36.0-46.0 % Mean Corpuscular Volume 89.4 80.0-100.0 fL Mean Corpuscular Hemoglobin 30.5 28.0-32.0 pg Mean Corpuscular Hemoglobin Concent 34.1 32.0-36.0 g/dL Red Cell Distribution Width 13.4 11.8-14.3 % Platelet Count 210 140-450 10^3/uL Mean Platelet Volume 7.5 6.9-10.8 fL Neutrophils (%) (Auto) 76.8 37.0-80.0 % Lymphocytes (%) (Auto) 15.6 10.0-50.0 % Monocytes (%) (Auto) 6.5 0.0-12.0 % Eosinophils (%) (Auto) 0.7 0.0-7.0 % Basophils (%) (Auto) 0.4 0.0-2.0 % Neutrophils # (Auto) 6.4 1.6-8.6 10 ^3/uL Lymphocytes # (Auto) 1.3 0.4-5.4 10 ^3/uL Monocytes # (Auto) 0.5 0-1.3 10 ^3/uL Eosinophils # (Auto) 0.1 0-0.8 10 ^3/uL Basophils # (Auto) 0 0-0.2 10 ^3/uL Nucleated Red Blood Cells 0.0 % Sodium Level 139 136-145 mmol/L Potassium Level 4.3 3.5-5.1 mmol/L Chloride Level 102 98-107 mmol/L Carbon Dioxide Level 28 20-31 mmol/L Anion Gap 9 5-15 Blood Urea Nitrogen 18 9-23 mg/dL Creatinine 0.77 0.550-1.02 mg/dL Glomerular Filtration Rate Calc 84 >90 mL/min BUN/Creatinine Ratio 23.4 H 10.0-20.0 Serum Glucose 171 H 74-106 mg/dL Hemoglobin A1c 10.1 H <5.7 % A1C Calcium Level 10.1 8.7-10.4 mg/dL Total Bilirubin 1.7 H 0.2-1.0 mg/dL Aspartate Amino Transferase (AST) 17 13-40 U/L Alanine Aminotransferase (ALT) 29 7-40 U/L Alkaline Phosphatase 78 46-116 U/L Total Protein 7.6 5.7-8.2 g/dL Albumin 4.6 3.2-4.8 g/dL Current Medications Medications (Trade) Dose Ordered Sig/Ramona Route Start Time Stop Time Status Last Admin Morphine Sulfate 4 mg ONCE ONCE IV 09/30/24 13:15 09/30/24 13:16 DC 09/30/24 13:39 Ondansetron HCl (Zofran) 4 mg ONCE ONCE IV 09/30/24 13:15 09/30/24 13:16 DC 09/30/24 13:31 [facility] [id number] [facility] [address] Ph: [phone] DIAGNOSTIC IMAGING Diagnostic Imaging Report : [id number] Signed PATIENT: NELSON HARRIS ACCT: [id number] UNIT: [id number] : 1955 LOC: ER ROOM / BED: / AGE / SEX: 69 / F ADM STATUS: REG ER SERVICE 1105 ORDERING PHYSICIAN: COURT REAL MD PROCEDURE(s): CXRP - CHEST PORTABLE REASON: CP ORDER NUMBER(s): [id number], ACCESSION NUMBER(s): [id number] CHEST RADIOGRAPH Indication: CP Technique: Single frontal view of the chest was obtained COMPARISON: CHEST PORTABLE on DOS: 11/03/20, CHEST PORTABLE on DOS: 08/05/20 FINDINGS: Lines and Tubes: None Lungs: Clear Pleura: No effusion. No pneumothorax. Cardiomediastinal contours: Unremarkable Bones: Unremarkable IMPRESSION: 1. No acute disease. ATED BY: ENEIDA GONZALEZ MD DICTATED DATE/TIME: 09/30/241246 SIGNED BY: ENEIDA GONZALEZ MD SIGNED DATE/TIME: 09/30/241246 CC: 69-year-old female with an extensive cardiac history including CABG and stents presents here with chest discomfort and left arm pain. She states that she has had similar pain in the past and it has been secondary to cardiac pain. At this time patient took nitroglycerin prior to arrival and aspirin. Patient was given nitroglycerin by EMS also. Patient had about 3/10 pain right saw the patient therefore she was given morphine IV with improvement in her pain. Multiple EKGs have been done of the patient, there has been no significant changes. Please see EKGs. Blood work has been done which is largely unremarkable except for elevated bilirubin. The exact cause of her elevated bilirubin is unknown today. . Troponin is negative. At this time I am concerned about cardiac disease on the patient. Hospitalist team has been contacted for admission. Time of 1ST Reevaluation: 11:06 Reevaluation 1ST: Unchanged Patient Education/Counseling: Diagnosis, Treatment Family Education/Counseling: No Family Present Departure 1 Departure Time of Disposition: 14:00 Impression: Primary Impression: Chest pain Qualified Codes: R07.9 - Chest pain, unspecified Additional Impression: Hyperbilirubinemia Disposition: ADMITTED INPATIENT Admit to: Tele Condition: Fair Discharged With: Self Critical Care Note Critical Care Time?: No Stability Stability form required: No Heart Score Heart Score: Heart Score Response (Comments) Value History Moderate Suspicious 1 EKG Normal 0 Age >65 2 Risk Factors >3 or Hx ASHD 2 Troponin Normal limit 0 Total 5 I personally scrib[address] for COURT REAL MD ([email or web address]) on 09/30/24 at 13:31. Electronically submitted by Geovanny Couch ([email or web address]). I personally scribed for COURT REAL MD ([email or web address]) on 09/30/24 at 13:40. Electronically submitted by Geovanny Couch ([email or web address]). COURT REAL MD Sep 30, 2024 13:31
[2024-09-30] MEDS: MORPHINE SULFATE 4 MG/ML SYR/VIAL IV ONE (13:39)
[2024-09-30] MEDS ORDERED: DEXTROSE (50%) 50ML SYRG IV PRN (14:45)
[2024-09-30] MEDS ORDERED: NITROGLYCERIN 0.4 MG SL TAB SL PRN ×2 (15:00)
[2024-09-30] MEDS ORDERED: MORPHINE SULFATE 4 MG/ML SYR/VIAL IV PRN (15:00)
[2024-09-30] MEDS ORDERED: LORazepam 0.5 MG TAB PO PRN (15:00)
[2024-09-30] MEDS ORDERED: MORPHINE SULFATE INJ 2 MG/ml SYRG IV PRN ×2 (15:00→15:30)
[2024-09-30] MEDS ORDERED: ONDANSETRON HCL 4 MG/2 ML VIAL IV PRN (15:00)
--- NOTE | 2024-09-30 15:15 | DVHHP2 ---
History of Present Illness Reason for Visit: Chest pain History of Present Illness Miranda Pierson is a 69-year-old female with past medical history of CABG in 2020, PTCA in 2019, anxiety, diabetes, hyperlipidemia, hypertension, and [place] who presents to the ED for chest pain 9/10 that radiates to the left arm. She r eports it as being tight and throbbing with the left arm being weak and numb. Patient states pain is 2/10 after being given morphine. Patient states that she was making breakfast this morning and she felt some anxiety and sluggishness. She had checked her blood pressure and it was high systolics in the 160s. She states that she sat down and called 911 for assistance. Patient states that she typically sees her broom worker Dr. Weber. Patient states that she is compliant with her medications. Patient states that she takes 30 units of Lantus in the morning daily and 22 units of Lantus in the evening daily. Patient denies shortness of breath, fever, chills, abdominal pain, nausea, vomiting, and diarrhea. Cardiovascular: HTN, [place], hyperipidemia Psych: Anxiety Endocrine: Diabetes Past Surgical History: CABG Past Surgical History PTCA Family History: None Smoke: No ALCOHOL: none Drugs: None Lives: with Family Domestic Violence: Neg Review of Systems Constitutional: No: Fever, Chills, Sweats, Weakness, Malaise, Other Eyes: No: Pain, Vision change, Conjunctivae inflammation, Eyelid inflammation, Other, Redness ENT: No: Ear pain, Ear discharge, Nose pain, Nose discharge, Nose congestion, Mouth pain, Mouth swelling, Throat pain, Throat swelling, Other Respiratory: No: Cough, Dry, Shortness of breath, SOB with excertion, Wheezing, Hemoptysis, Pleuritic Pain, Sputum, Wheezing, Other Cardiovascular: Chest Pain Gastrointestinal: No: Nausea, Vomiting, Abdominal Pain, Diarrhea, Constipation, Melena, Hematochezia, Other Genitourinary: No Dysuria, No Frequency, No Incontinence, No Hematuria, No Retention, No Other Musculoskeletal: other (Left arm numbness and weakness); No: neck pain, shoulder pain, arm pain, back pain, hand pain, leg pain, foot pain Skin: No: Rash, Lesions, Jaundice, Bruising, Other Neurological: No: Weakness, Numbness, Incoordination, Change in speech, Confusion, Seizures, Other Allergies: Coded Allergies: Shellfish Allergy (Verified Allergy, Unknown, 08/06/20) Uncoded Allergies: eggplant (Allergy, Unknown, 08/06/20) Exam Vital Signs Vital Signs Date Time Temp Pulse Resp B/P (MAP) Pulse Ox O2 Delivery O2 Flow Rate FiO2 09/30/24 13:40 74 09/30/24 13:39 16 114/55 09/30/24 11:09 98.7 99 General Appearance: Alert, Oriented X3, Cooperative, No acute distress HEENT: Atraumatic, PERRLA, EOMI, Mucous membr. moist/pink Respiratory: Clear to auscultation, Normal air movement Cardiovascular: Regular rate, Normal S1, Normal S2, No murmurs Abdominal: Normal bowel sounds, Soft, No tenderness, No hepatospenomegaly, No masses Extremities: No clubbing, No cyanosis, No edema, Normal pulses, No tenderness/swelling Skin: No rashes, No breakdown, No significant lesion Neuro: Normal gait, Normal speech, Strength at 5/5 X4 ext, Normal tone, Sensation intact Psych/Mental Status: Mental status NL, Mood NL Labs/Xrays Labs Test 09/30/24 12:01 09/30/24 11:13 Range/Units Troponin I High Sensitivity 6 </=34 ng/L White Blood Count 8.4 4.4-10.8 10^3/uL Red Blood Count 5.11 4.0-5.20 10^6/uL Hemoglobin 15.6 12.2-16.2 g/dL Hematocrit 45.7 36.0-46.0 % Mean Corpuscular Volume 89.4 80.0-100.0 fL Mean Corpuscular Hemoglobin 30.5 28.0-32.0 pg Mean Corpuscular Hemoglobin Concent 34.1 32.0-36.0 g/dL Red Cell Distribution Width 13.4 11.8-14.3 % Platelet Count 210 140-450 10^3/uL Mean Platelet Volume 7.5 6.9-10.8 fL Neutrophils (%) (Auto) 76.8 37.0-80.0 % Lymphocytes (%) (Auto) 15.6 10.0-50.0 % Monocytes (%) (Auto) 6.5 0.0-12.0 % Eosinophils (%) (Auto) 0.7 0.0-7.0 % Basophils (%) (Auto) 0.4 0.0-2.0 % Neutrophils # (Auto) 6.4 1.6-8.6 10 ^3/uL Lymphocytes # (Auto) 1.3 0.4-5.4 10 ^3/uL Monocytes # (Auto) 0.5 0-1.3 10 ^3/uL Eosinophils # (Auto) 0.1 0-0.8 10 ^3/uL Basophils # (Auto) 0 0-0.2 10 ^3/uL Nucleated Red Blood Cells 0.0 % Sodium Level 139 136-145 mmol/L Potassium Level 4.3 3.5-5.1 mmol/L Chloride Level 102 98-107 mmol/L Carbon Dioxide Level 28 20-31 mmol/L Anion Gap 9 5-15 Blood Urea Nitrogen 18 9-23 mg/dL Creatinine 0.77 0.550-1.02 mg/dL Glomerular Filtration Rate Calc 84 >90 mL/min BUN/Creatinine Ratio 23.4 H 10.0-20.0 Serum Glucose 171 H 74-106 mg/dL Calcium Level 10.1 8.7-10.4 mg/dL Total Bilirubin 1.7 H 0.2-1.0 mg/dL Aspartate Amino Transferase (AST) 17 13-40 U/L Alanine Aminotransferase (ALT) 29 7-40 U/L Alkaline Phosphatase 78 46-116 U/L Total Protein 7.6 5.7-8.2 g/dL Albumin 4.6 3.2-4.8 g/dL CHEST RADIOGRAPH Indication: CP Technique: Single frontal view of the chest was obtained COMPARISON: CHEST PORTABLE on DOS: 11/03/20, CHEST PORTABLE on DOS: 08/05/20 FINDINGS: Lines and Tubes: None Lungs: Clear Pleura: No effusion. No pneumothorax. Cardiomediastinal contours: Unremarkable Bones: Unremarkable IMPRESSION: 1. No acute disease. Assessment/Plan Assessment/Plan Assessment: Rule out ACS Hyperbilirubinemia History of CABG 2020 PTCA 2019 Anxiety Diabetes Hyperlipidemia Hypertension [place] Plan: Admit to tele Pain management Antiemetics Cards cx Trend troponin's EKG CXR ECHO noted EF 50% in February 2024 TSH Lipid panel HgbA1C 10.1 ISS and accuchecks Diet as tolerated Monitor labs Home medications reconciled Plan discussed with: Patient My Orders Orders - THON,SALINA K SUPERVISOR [employer]GL[employer] Procedure Category Date Status Time Glucose Blood PHA 09/30/24 Logged (Accu-Chek Comfort 16:00 Insulin R (Human) PHA 09/30/24 Logged (Insulin R) 16:00 Dextrose 50% Syringe PHA 09/30/24 Logged 14:45 Hemoglobin A1c LAB 09/30/24 In Process 14:32 Date of Service: Sep 30, 2024 Billing Provider: KIMBERLY SEARS Common Visit Codes: [id number] INP/OBS CARE (MOD) KIMBERLY SEARS Sep 30, 2024 15:15
[2024-09-30] MEDS: MAALOX PLUS or MAALOX 30 ML PO ONE (15:23)
[2024-09-30] MEDS: ACCU-CHEK COMFORT CURVE STRIP VI SCH (15:40)
[2024-09-30] MEDS: InsuLIN REG 1unit/0.01ml Soln (100units/ml) SC SCH (15:41)
--- NOTE | 2024-09-30 17:23 | ECG ---
[facility] Test Date: 2024-09-30 Test Time: 13:36:32 Pat Name: NELSON HARRIS Department: ER Room: [address] [place] [address] Gender: F Hospice Care Consultant: LUZ : 1955 Requested By: COURT REAL Order Number: [id number] Reading MD: Measurements Intervals [place] Rate: 74 P: 57 [place]: 153 QRS: 91 QRSD: 154 T: 34 QT: 457 QTc: 507 Interpretive Statements Sinus rhythm Probable left atrial enlargement Right bundle branch block Please click the below link to view image of tracing.
--- NOTE | 2024-09-30 17:23 | ECG ---
[facility] Test Date: 2024-09-30 Test Time: 10:37:37 Pat Name: NELSON HARRIS Department: ER Room: [address] [place] [address] Gender: F Validation Technician: LUZ : 1955 Requested By: COURT REAL Order Number: [id number] Reading MD: Measurements Intervals [place] Rate: 84 P: 59 [place]: 156 QRS: 81 QRSD: 151 T: 34 QT: 442 QTc: 523 Interpretive Statements Sinus rhythm Left atrial enlargement Right bundle branch block Probable lateral infarct, old Please click the below link to view image of tracing.
--- NOTE | 2024-09-30 17:23 | ECG ---
[facility] Test Date: 2024-09-30 Test Time: 11:41:34 Pat Name: NELSON HARRIS Department: ER Room: [address] [place] [address] Gender: F Fashion Consultant: LUZ : 1955 Requested By: COURT REAL Order Number: [id number] Reading MD: Measurements Intervals [place] Rate: 85 P: 55 SC: 153 QRS: 92 QRSD: 148 T: 22 QT: 444 QTc: 528 Interpretive Statements Sinus rhythm Left atrial enlargement Right bundle branch block Probable lateral infarct, old Please click the below link to view image of tracing.
[2024-09-30 18:09] LABS: LDL Cholesterol 56 mg/dL (< 100)
[2024-09-30 18:10] LABS: Cholesterol 104 mg/dL (< 200)
[2024-09-30 18:55] LABS: Triglycerides 78 mg/dL (< 150)
[2024-09-30 18:56] LABS: HDL Cholesterol 34 mg/dL (40-59)
[2024-09-30 20:16] VITALS: PULSE 76; RESP 17; O2SAT 97
[2024-09-30] MEDS: ACETAMINOPHEN 325 MG TAB PO PRN (21:04)
[2024-09-30] MEDS: INSULIN LANTUS (GLARGINE) 1 /0.01ml (100units/ml) SC SCH (22:00)
[2024-09-30] MEDS: ATORVASTATIN 20 MG TAB PO SCH (22:35)
[2024-09-30] MEDS: METOPROLOL TARTRATE 25 MG TAB PO SCH (22:39)
[2024-10-01 02:50] VITALS: BP 128/60; PULSE 70; RESP 16; TEMP 97.6; O2SAT 95
[2024-10-01] MEDS: INSULIN LANTUS (GLARGINE) 1 /0.01ml (100units/ml) SC SCH (04:56)
[2024-10-01 05:00] VITALS: BP 121/64; PULSE 74; RESP 18; TEMP 98.4; O2SAT 92
[2024-10-01 08:00] VITALS: PULSE 95; O2SAT 97
[2024-10-01 08:13] LABS: Basophils # (auto) 0 10 ^3/uL (0-0.2); Basophils % (auto) 0.5 % (0.0-2.0); Eosinophils # (auto) 0.1 10 ^3/uL (0-0.8); Eosinophils % (auto) 1.8 % (0.0-7.0); Hematocrit 47.1 % (36.0-46.0); Hemoglobin 15.6 g/dL (12.2-16.2); Lymphocytes # (auto) 2.1 10 ^3/uL (0.4-5.4); Lymphocytes % (auto) 32.1 % (10.0-50.0); Mean Corpuscular Hemoglobin 29.7 pg (28.0-32.0); Mean Corpuscular Hgb Conc. 33.1 g/dL (32.0-36.0); Mean Corpuscular Volume 89.8 fL (80.0-100.0); Monocytes # (auto) 0.6 10 ^3/uL (0-1.3); Monocytes % (auto) 8.8 % (0.0-12.0); Neutrophils # (auto) 3.7 10 ^3/uL (1.6-8.6); Neutrophils % (auto) 56.8 % (37.0-80.0); Nucleated Red Blood Cells % 0.2 %; Platelet Count (auto) 202 10^3/uL (140-450); Red Blood Cells 5.25 10^6/uL (4.0-5.20); Red Cell Distribution Width 13.2 % (11.8-14.3); White Blood Cell 6.5 10^3/uL (4.4-10.8)
[2024-10-01 08:15] LABS: Alanine Aminotransferase 25 U/L (7-40); Albumin 4.4 g/dL (3.2-4.8); Alkaline Phosphatase 72 U/L (46-116); Anion Gap 8 (5-15); Aspartate Aminotransferase 18 U/L (13-40); BUN/Creatinine Ratio 30.3 (10.0-20.0); Blood Urea Nitrogen 20 mg/dL (9-23); Calcium 10.1 mg/dL (8.7-10.4); Carbon Dioxide 28 mmol/L (20-31); Chloride 102 mmol/L (98-107); Glucose 100 mg/dL (74-106); Potassium 4.6 mmol/L (3.5-5.1); Sodium 138 mmol/L (136-145)
[2024-10-01 08:16] LABS: Total Protein 7.2 g/dL (5.7-8.2)
[2024-10-01 08:23] LABS: Bilirubin, Total 1.8 mg/dL (0.2-1.0)
[2024-10-01 08:58] LABS: Urine Bacteria None Seen /hpf (None Seen)
[2024-10-01 09:00] VITALS: BP 153/84; PULSE 90; RESP 16; TEMP 97.8; O2SAT 93
[2024-10-01] MEDS: DOCUSATE SOD 100 MG CAP PO SCH (09:18)
[2024-10-01] MEDS: ASPirin-EC 81 mg tab PO SCH (09:18)
[2024-10-01 09:19] LABS: Urine Blood Negative /uL (Negative); Urine Clarity Clear (Clear); Urine Color Light-Yellow (Yellow); Urine Protein, UAD Negative (Negative); Urine Specific Gravity 1.028 (1.001-1.035); Urine Urobilinogen Normal (Negative); Urine WBC 2 /hpf (0 - 5)
[2024-10-01] MEDS: LISINOPRIL 5 MG TAB PO SCH (09:19)
[2024-10-01] MEDS ORDERED: ASPirin 81 mg TAB PO SCH (10:00)
[2024-10-01 13:00] VITALS: BP 110/63; PULSE 61; RESP 18; TEMP 98.6; O2SAT 94
--- NOTE | 2024-10-01 14:59 | DVHINCON2 ---
Date Seen: Oct 01, 2024 Referring Physician Benson Reason for Consultation Chest Pain History of Present Illness 69-year-old female with PMH for CABG in 2020, PTCA in 2019, anxiety, diabetes, HTN presents to the hospital with chest pain. Chest pain noted to be retrosternal, intermittent, sharp in nature, reproducible, positional. Troponins negative upon ER evaluation. Patient states that she has recently had angiogram and stress test in [place] which were negative. Patient following up outpatient with Dr. Weber. Also found to have elevated blood pressure 160s. EKG reviewed negative for acute ischemic changes. Past Medical History CABG in 2020 PTCA in 2019 HTN HLD Diabetes Past Surgical History CABG 2020 PTCA 2019 Coronary angiogram in 2023 per patient no intervention needed at time. Family History: Diabetes mellitus G8 MOTHER G8 BROTHER Hypertension G8 MOTHER G8 BROTHER Social History Denies alcohol, tobacco, or illicit drug use. Allergies: Coded Allergies: Shellfish Allergy (Verified Allergy, Unknown, 08/06/20) Uncoded Allergies: eggplant (Allergy, Unknown, 08/06/20) Home Meds Active Scripts Metoprolol Tartrate (Lopressor) 25 Mg Tb, 12.5 MG PO Q12HR for 30 Days, #30 TAB 9 Refills Prov:GUILLERMOCATHY Morataya T DO 03/10/24 Lisinopril (Lisinopril) 5 Mg Tab, 5 MG PO DAILY for 30 Days, #30 TAB 9 Refills Prov:CATHY GUILLERMO DO 03/10/24 Atorvastatin Calcium (ATORVASTATIN CALCIUM) 20 Mg Tab, 40 MG PO HS for 30 Days, #60 TAB 9 Refills Prov:HEBER GUILLERMOMY T DO 03/10/24 Reported Medications Insulin Glargine (Basaglar Kwikpen) 100 Unit/Ml Inj, 100 UNIT SC, INJ 08/06/20 Insulin NPH Isophane & Reg (Hu (Novolin 70/30 Flexpen (70-30) 100 Unit/ml) 1 Inj Inj, 1 INJ SC, INJ 08/06/20 Aspirin (Aspir-Low) 81 Mg Tab, 81 MG PO DAILY for 30 Days, MG 08/06/20 Current Medications Current Medications Medications (Trade) Dose Ordered Sig/Ramona Route PRN Reason Start Time Stop Time Status Last Admin Diagnostic Test (Pha) (Accu-Chek Comfort Curve T) 1 strip IQ4HR 09/30/24 16:00 10/01/24 11:28 Insulin Human Regular (InsuLIN R) IQ4HR SC 09/30/24 16:00 10/01/24 11:28 Aspirin 81 mg DAILY PO 10/01/24 10:00 09/30/24 16:08 DC Morphine Sulfate 2 mg Q30MP PRN IV FOR CHEST PAIN 09/30/24 15:00 UNV Acetaminophen (Tylenol Tablet) 650 mg Q6HP PRN PO MILD PAIN (1-3 PAIN SCALE) 09/30/24 15:00 09/30/24 21:04 Lorazepam (Ativan Tablet) 0.5 mg Q6HP PRN PO ANXIETY 09/30/24 15:00 Docusate Sodium (Colace Capsule) 100 mg DAILY PO 10/01/24 10:00 10/01/24 09:18 Nitroglycerin (Ntrostat Sublingual) 0.4 mg Q5MINP PRN SL FOR CHEST PAIN 09/30/24 15:00 Ondansetron HCl (Zofran) 4 mg Q4HP PRN IV NAUSEA / VOMITING 09/30/24 15:00 Nitroglycerin (Ntrostat Sublingual) 0.4 mg Q5MINP PRN SL FOR CHEST PAIN 09/30/24 15:00 UNV Morphine Sulfate 2 mg Q30M PRN IV FOR CHEST PAIN 09/30/24 15:00 UNV Morphine Sulfate 2 mg Q30M PRN IV FOR CHEST PAIN 09/30/24 15:30 Aspirin (Ecotrin Enteric Coated Tablet) 81 mg DAILY PO 10/01/24 10:00 10/01/24 09:18 Atorvastatin Calcium (Lipitor) 40 mg HS PO 09/30/24 22:00 09/30/24 22:35 Lisinopril (Zestril Tablet) 5 mg DAILY PO 10/01/24 10:00 10/01/24 09:19 Metoprolol Tartrate (Lopressor Tablet) 12.5 mg Q12HR PO 09/30/24 22:00 10/01/24 09:19 Insulin Glargine (Lantus) 30 units QAM SC 10/01/24 07:00 Insulin Glargine (Lantus) 22 units HS SC 09/30/24 22:00 09/30/24 22:00 Review of Systems Constitutional: No: Fever, Chills, Sweats, Weakness, Malaise, Other Eyes: No: Pain, Vision change, Conjunctivae inflammation, Eyelid inflammation, Other, Redness ENT: No: Ear pain, Ear discharge, Nose pain, Nose discharge, Nose congestion, Mouth pain, Mouth swelling, Throat pain, Throat swelling, Other Respiratory: No: Cough, Dry, Shortness of breath, SOB with exertion, Wheezing, Hemoptysis, Pleuritic Pain, Sputum, Wheezing, Other Cardiovascular: ; No: Palpitations, Orthopnea, Paroxysmal Noc. Dyspnea, Edema, Lt Headedness, Other positive: Chest Pain Gastrointestinal: No: Nausea, Vomiting, Abdominal Pain, Diarrhea, Constipation, Melena, Hematochezia, Other Genitourinary: No Dysuria, No Frequency, No Incontinence, No Hematuria, No Retention, No Other Musculoskeletal: neck pain; No: other, shoulder pain, arm pain, back pain, hand pain, leg pain, foot pain Skin: No: Rash, Lesions, Jaundice, Bruising, Other Neurological: Other (Dizziness, headache.); No: Weakness, Numbness, Incoordination, Change in speech, Confusion, Seizures Vital Signs Vital Signs Date Time Temp Pulse Resp B/P (MAP) Pulse Ox O2 Delivery O2 Flow Rate FiO2 10/01/24 13:00 98.6 61 18 110/63 (79) 94 98.6 10/01/24 08:00 Room Air* 0 21 Physical Exam General appearance: Patient is well-developed, well-nourished, in no acute distress. HEENT: Exam shows: Normocephalic, atraumatic, PERRLA, EOMI Neck: Supple, no bruits Chest: Equal chest excursion bilaterally. Breath sounds normal-no rales or wheezes. Heart: Rhythm: Regular rate; no murmur or gallop Abdomen: Exam shows: Soft, nontender, nondistended Musculoskeletal: No clubbing, no cyanosis, no lower extremity edema Dermatology: Skin warm, moist. Neurological: Exam shows: Alert and oriented x4, normal speech Available prior records, labs, EKG, rhythm strips reviewed and interpreted Labs/Diagnostic Data Labs Test 10/01/24 08:14 10/01/24 07:40 10/01/24 06:59 09/30/24 14:43 Range/Units POC Glucose 147 H 70-106 mg/dl Urine Color Light-yellow Yellow Urine Clarity Clear Clear Urine pH 5.0 5.0-9.0 Urine Specific [place] 1.028 1.001-1.035 Urine Protein Negative Negative Urine Ketones Negative Negative Urine Blood Negative Negative /uL Urine Nitrite Negative Negative Urine Bilirubin Negative Negative Urine Urobilinogen Normal Negative mg/dL Urine Leukocyte Esterase Negative Negative /uL Urine RBC 1 0 - 4 /hpf Urine WBC 2 0 - 5 /hpf Urine Squamous Epithelial Cells Few <5 /hpf Urine Bacteria None seen None Seen /hpf Urine Glucose 4+ H Normal mg/dL White Blood Count 6.5 4.4-10.8 10^3/uL Red Blood Count 5.25 H 4.0-5.20 10^6/uL Hemoglobin 15.6 12.2-16.2 g/dL Hematocrit 47.1 H 36.0-46.0 % Mean Corpuscular Volume 89.8 80.0-100.0 fL Mean Corpuscular Hemoglobin 29.7 28.0-32.0 pg Mean Corpuscular Hemoglobin Concent 33.1 32.0-36.0 g/dL Red Cell Distribution Width 13.2 11.8-14.3 % Platelet Count 202 140-450 10^3/uL Mean Platelet Volume 7.6 6.9-10.8 fL Neutrophils (%) (Auto) 56.8 37.0-80.0 % Lymphocytes (%) (Auto) 32.1 10.0-50.0 % Monocytes (%) (Auto) 8.8 0.0-12.0 % Eosinophils (%) (Auto) 1.8 0.0-7.0 % Basophils (%) (Auto) 0.5 0.0-2.0 % Neutrophils # (Auto) 3.7 1.6-8.6 10 ^3/uL Lymphocytes # (Auto) 2.1 0.4-5.4 10 ^3/uL Monocytes # (Auto) 0.6 0-1.3 10 ^3/uL Eosinophils # (Auto) 0.1 0-0.8 10 ^3/uL Basophils # (Auto) 0 0-0.2 10 ^3/uL Nucleated Red Blood Cells 0.2 % Sodium Level 138 136-145 mmol/L Potassium Level 4.6 3.5-5.1 mmol/L Chloride Level 102 98-107 mmol/L Carbon Dioxide Level 28 20-31 mmol/L Anion Gap 8 5-15 Blood Urea Nitrogen 20 9-23 mg/dL Creatinine 0.66 0.550-1.02 mg/dL Glomerular Filtration Rate Calc 96 >90 mL/min BUN/Creatinine Ratio 30.3 H 10.0-20.0 Serum Glucose 100 74-106 mg/dL Calcium Level 10.1 8.7-10.4 mg/dL Total Bilirubin 1.8 H 0.2-1.0 mg/dL Aspartate Amino Transferase (AST) 18 13-40 U/L Alanine Aminotransferase (ALT) 25 7-40 U/L Alkaline Phosphatase 72 46-116 U/L Total Protein 7.2 5.7-8.2 g/dL Albumin 4.4 3.2-4.8 g/dL Troponin I High Sensitivity 8 </=34 ng/L Test 09/30/24 12:01 09/30/24 11:13 Range/Units Triglycerides Level 78 < 150 mg/dL Cholesterol Level 104 < 200 mg/dL LDL Cholesterol 56 < 100 mg/dL HDL Cholesterol 34 L 40-59 mg/dL Thyroid Stimulating Hormone (TSH) 1.15 0.55-4.78 uIU/mL Hemoglobin A1c 10.1 H <5.7 % A1C Assessment * Chest pain - atypical. Troponins negative. Normal EF on echo. EKG negative for acute ischemic changes. ACS ruled out. Follow up outpatient. Continue aspirin and statin. * HTN - continue home medications metoprolol on lisinopril. Titrate as tolerated. * HLD - statin. Case Discussed with Dr Todd. Troponins negative. Atypical chest pain. Normal EF on echo. ACS ruled out. There is no further cardiac work-up indicated at this time. Recommend outpatient follow-up for ischemic workup with stress test. Thank you for allowing us to participate in this patient's care. Stable from Cardiology standpoint for discharge. Will sign off. Critical care, time spent: 38 minutes This medical document was created using an electronic medical record system with voice recognition software and computerized dictation system. Although this document has been carefully reviewed, there might still be some phonetic and typographical errors. Occasional wrong-word or ``sound-alike substitutions may have occurred due to the inherent limitations of voice recognition software. These areas are purely typographical due to imperfections of the software programs and do not reflect any compromise in the patient's medical care. Please read the chart carefully and recognize, using context, where these substitutions have occurred. Plan discussed with: Patient Date of Service: Oct 01, 2024 Billing Provider: SAMMY TODD MD Cardiology Common Codes: [id number] INP/OBS CARE (High), [id number] CARE 30-74 MIN ANTONINO HENDRICKS [facility] Oct 01, 2024 14:59
[2024-10-01 15:10] VITALS: BP 116/64; PULSE 65; RESP 17; TEMP 98.2; O2SAT 96
== END 2024-10-01 17:22 | disposition home or self-care (01) | DRG 313 ==
LOC: EDBD 10:36 → ER 10:36 → TELE 14:49 → TELE-WESTW 10-01 02:50
DX: R07.89 Other chest pain (principal); I10 Essential (primary) hypertension; E78.5 Hyperlipidemia, unspecified; E11.9 Type 2 diabetes mellitus without complications; F41.9 Anxiety disorder, unspecified; E80.6 Other disorders of bilirubin metabolism; I25.2 Old myocardial infarction; Z91.013 Allergy to seafood; Z91.012 Allergy to eggs; Z79.899 Other long term (current) drug therapy; Z79.4 Long term (current) use of insulin; Z95.1 Presence of aortocoronary bypass graft; Z83.3 Family history of diabetes mellitus; Z82.49 Family history of ischemic heart disease and other diseases of the circulatory system; Z79.82 Long term (current) use of aspirin
CPT/HCPCS: 36415; 71045; 80053; 80061; 81001; 82962; 83036; 84443; 84484; 85025; 93005; 96374; 96375; G0378; J1815; J2405

== ENCOUNTER → 2024-12-21 | Outpatient (CLI) | payer OTHER, MEDICAID | END | disposition home or self-care (01) | LOC: LAB 14:59 | PROVIDERS: ATTEND Registered Nurse | DX: N39.0 Urinary tract infection, site not specified (principal); R30.0 Dysuria | CPT/HCPCS: 87086 ==

== ENCOUNTER 2025-07-23 08:24 | Outpatient (CLI) | payer OTHER, MEDICAID ==
[2025-07-23 09:17] LABS: Hematocrit 43.8 % (36.0-46.0); Hemoglobin 14.8 g/dL (12.2-16.2); Mean Corpuscular Hemoglobin 30.0 pg (28.0-32.0); Mean Corpuscular Volume 88.5 fL (80.0-100.0); Nucleated Red Blood Cells % 0.1 %
[2025-07-23 09:56] LABS: Alanine Aminotransferase 26 U/L (7-40); Albumin 4.5 g/dL (3.2-4.8); Alkaline Phosphatase 73 U/L (46-116); Anion Gap 10 (5-15); BUN/Creatinine Ratio 21.2 (10.0-20.0); Blood Urea Nitrogen 14 mg/dL (9-23); Calcium 9.1 mg/dL (8.7-10.4); Carbon Dioxide 27 mmol/L (20-31); Chloride 102 mmol/L (98-107); Cholesterol 107 mg/dL (< 200); Potassium 4.1 mmol/L (3.5-5.1); Sodium 139 mmol/L (136-145); Total Protein 7.5 g/dL (5.7-8.2); Triglycerides 90 mg/dL (< 150)
[2025-07-23 09:58] LABS: Bilirubin, Total 1.5 mg/dL (0.2-1.0); Glucose 154 mg/dL (74-106); HDL Cholesterol 34 mg/dL (40-59)
[2025-07-23 10:01] LABS: Microalb/Creat Ratio, Urine 20.0
== END 2025-07-23 17:00 | disposition home or self-care (01) ==
LOC: LAB 08:24
PROVIDERS: ATTEND Nurse Practitioner Family
DX: I11.0 Hypertensive heart disease with heart failure (principal); E11.65 Type 2 diabetes mellitus with hyperglycemia; Z00.01 Encounter for general adult medical examination with abnormal findings
CPT/HCPCS: 36415; 80053; 80061; 82043; 82570; 84443; 85025

== ENCOUNTER 2025-10-08 08:37 | Outpatient (CLI) | payer OTHER, MEDICAID ==
[2025-10-08 09:22] LABS: Hematocrit 43.7 % (36.0-46.0); Hemoglobin 14.7 g/dL (12.2-16.2); Mean Corpuscular Hemoglobin 29.9 pg (28.0-32.0); Mean Corpuscular Volume 88.8 fL (80.0-100.0); Nucleated Red Blood Cells % 0.0 %
[2025-10-08 09:57] LABS: Microalb/Creat Ratio, Urine 10.0
[2025-10-08 09:58] LABS: Alanine Aminotransferase 26 U/L (7-40); Albumin 4.5 g/dL (3.2-4.8); Alkaline Phosphatase 68 U/L (46-116); Anion Gap 10 (5-15); BUN/Creatinine Ratio 21.0 (10.0-20.0); Blood Urea Nitrogen 13 mg/dL (9-23); Calcium 9.4 mg/dL (8.7-10.4); Carbon Dioxide 27 mmol/L (20-31); Chloride 103 mmol/L (98-107); Cholesterol 101 mg/dL (< 200); Potassium 4.6 mmol/L (3.5-5.1); Sodium 140 mmol/L (136-145); Total Protein 7.5 g/dL (5.7-8.2); Triglycerides 78 mg/dL (< 150)
[2025-10-08 10:07] LABS: Bilirubin, Total 1.4 mg/dL (0.2-1.0); Glucose 145 mg/dL (74-106); HDL Cholesterol 38 mg/dL (40-59)
== END 2025-10-08 17:00 | disposition home or self-care (01) ==
LOC: LAB 08:37
PROVIDERS: ATTEND Internal Medicine Endocrinology, Diabetes & Metabolism
DX: E11.65 Type 2 diabetes mellitus with hyperglycemia (principal)
CPT/HCPCS: 36415; 80053; 80061; 82043; 82570; 83036; 85025